=== PATIENT | female | born 1935 | race Caucasian/White ===

== ENCOUNTER 2017-03-25 11:51 | Emergency (ER) | payer MEDICARE, OTHER ==
[~2017-03-25] VITALS: Ht 160 cm; Wt 74.8 kg
[2017-03-25 13:00] VITALS: BP 181/89
[2017-03-25 13:35] LABS: Urine Bilirubin Negative (Negative); Urine Color Yellow (Yellow); Urine Glucose Normal (Normal); Urine Hyaline Cast FEW /lpf (0 - 2); Urine Ketone Negative (Negative); Urine Nitrite Negative (Negative); Urine RBC 10 /hpf (0 - 4); Urine Squamous Epithelial Cell FEW /hpf (<5); Urine Urobilinogen Normal (Negative); Urine pH 5.5 (5.0-8.0)
[2017-03-25 13:36] LABS: Urine Blood 1+ /uL (Negative)
[2017-03-25 13:39] LABS: DEFINITIVE VIEW TRANSMISSION; Hematocrit 44.5 % (36.0-46.0); Hemoglobin 14.5 g/dL (12.2-16.2); Mean Corpuscular Hemoglobin 22.1 pg (28.0-32.0); Mean Corpuscular Hgb Conc. 32.6 g/dL (32.0-36.0); Mean Corpuscular Volume 67.8 fL (80.0-100.0); Mean Platelet Volume 10.7 fL (7.4-10.4); Platelet Count (auto) 293 10^3/uL (140-450); SUSPECT VIEW TRANSMISSION; White Blood Cell 7.3 10^3/uL (4.4-10.8)
[2017-03-25 14:11] LABS: Albumin 3.7 g/dL (3.4-5.0); BUN/Creatinine Ratio 17.7; Bilirubin, Total 0.6 mg/dL (0.2-1.0); Calcium 9.2 mg/dL (8.5-10.1); Potassium 4.2 mmol/L (3.5-5.1); Total Protein 7.5 g/dL (6.4-8.2)
[2017-03-25 14:40] LABS: Red Cell Distribution Width 20.1 % (11.6-16.0)
[2017-03-25 14:41] LABS: Metamyelocytes % 0; Myelocytes % 0; Promyelocytes % 0; Reactive Lymphocytes 0
[2017-03-25 16:04] LABS: Anisocytosis Moderate; Burr Cells FEW; Giant Platelets Moderate; Hypochromia Moderate; Microcytosis Moderate; Ovalocytes FEW; Platelet Estimate Adequate
== END 2017-03-25 15:41 | disposition home or self-care (01) ==
LOC: ER 11:54
DX: M43.06 Spondylolysis, lumbar region (principal); N39.0 Urinary tract infection, site not specified; M19.90 Unspecified osteoarthritis, unspecified site; I10 Essential (primary) hypertension
CPT/HCPCS: 36415; 72100; 80053; 81001; 85007; 85027

== ENCOUNTER 2017-10-20 07:44 | Inpatient (IN) | payer MEDICARE, OTHER ==
[~2017-10-20] VITALS: Ht 160 cm; Wt 64.9 kg
[2017-10-20] MEDS ORDERED: SODIUM CHLORIDE 0.9% 1,000 ML IV ONE (08:43)
[2017-10-20] MEDS ORDERED: CLINDAMYCIN 600MG IV 50 ML IV ONE (08:45)
[2017-10-20] MEDS ORDERED: HYDROcodone-ACET 5/325MG TAB PO PRN (09:00)
[2017-10-20] MEDS ORDERED: ACETAMINOPHEN 500 MG TAB PO PRN (09:00)
[2017-10-20] MEDS ORDERED: LACTULOSE 20Gm/30ML SOLN PO PRN (09:00)
[2017-10-20] MEDS ORDERED: MORPHINE SULF INJ 2 MG/ML SYRINGE 1ML IV PRN ×2 (09:00)
[2017-10-20] MEDS ORDERED: PROMETHAZINE HCL 25 MG/ML 1ML IV PRN (09:00)
[2017-10-20] MEDS ORDERED: LORazepam 0.5 MG TAB PO PRN (09:00)
[2017-10-20] MEDS ORDERED: TEMAZEPAM 15 MG CAP PO PRN (09:00)
[2017-10-20] MEDS ORDERED: NITROGLYCERIN 0.4 MG SL TAB SL PRN (09:00)
[2017-10-20] MEDS: SODIUM CHLORIDE 0.9% 1,000 ML IV SCH ×2 (09:30→18:58)
[2017-10-20 09:35] LABS: Mean Platelet Volume 8.8 fL (6.9-10.8); White Blood Cell 6.1 10^3/uL (4.4-10.8)
[2017-10-20 09:36] LABS: Hematocrit 42.2 % (36.0-46.0); Mean Corpuscular Hemoglobin 24.7 pg (28.0-32.0); Mean Corpuscular Hgb Conc. 33.2 g/dL (32.0-36.0); Mean Corpuscular Volume 74.5 fL (80.0-100.0); Platelet Count (auto) 207 10^3/uL (140-450)
[2017-10-20 09:39] LABS: Red Cell Distribution Width 20.1 % (11.8-14.3)
[2017-10-20 09:40] LABS: Metamyelocytes % 0; Myelocytes % 0; Promyelocytes % 0; Reactive Lymphocytes 0
[2017-10-20] MEDS: cefTRIAXone 1GM/10ml IVPUSH 10 ML IV SCH (09:40)
[2017-10-20 09:48] LABS: BUN/Creatinine Ratio 14.6; Calcium 8.4 mg/dL (8.5-10.1); Potassium 3.6 mmol/L (3.5-5.1)
[2017-10-20 10:15] LABS: Anisocytosis Slight; Burr Cells FEW; Hypochromia Slight; Platelet Estimate Adequate
[2017-10-20 10:16] LABS: Microcytosis Slight; Ovalocytes FEW
[2017-10-20 10:28] LABS: Urine Bilirubin Negative (Negative); Urine Blood Negative /uL (Negative); Urine Color Yellow (Yellow); Urine Glucose Normal (Normal); Urine Ketone Negative (Negative); Urine Mucus FEW (None Seen); Urine Nitrite POSITIVE (Negative); Urine RBC 3 /hpf (0 - 4); Urine Squamous Epithelial Cell FEW /hpf (<5); Urine Urobilinogen Normal (Negative)
[2017-10-20] MEDS: HYDROXYUREA 500 MG CAP PO ONE ×2 (10:30→11:31)
[2017-10-20] MEDS: ENOXAPARIN SOD 40 MG/0.4 ML SYRINGE SC SCH (11:31)
[2017-10-20 11:57] LABS: Uric Acid 6.4 mg/dL (2.6-6.0)
[2017-10-20] MEDS: CLINDAMYCIN 600MG IV 50 ML IV SCH ×2 (14:00→21:37)
[2017-10-20] MEDS ORDERED: ASPI81CH43 PO (14:55)
[2017-10-20] MEDS ORDERED: CLON0.1T PO (14:55)
[2017-10-20] MEDS ORDERED: LEVO112T4 PO (14:55)
[2017-10-20] MEDS ORDERED: BENA20TA14 PO (14:55)
[2017-10-20 17:00] VITALS: BP 194/80
[2017-10-20] MEDS ORDERED: HYD500C PO (20:24)
[2017-10-20 22:00] VITALS: BP 172/82
[2017-10-20] MEDS: cloNIDine HCL 0.1 MG TAB PO PRN (22:36)
[2017-10-21] MEDS: SODIUM CHLORIDE 0.9% 1,000 ML IV SCH (04:50)
[2017-10-21] MEDS: CLINDAMYCIN 600MG IV 50 ML IV SCH ×3 (05:44→22:06)
[2017-10-21] MEDS: cloNIDine HCL 0.1 MG TAB PO PRN (05:45)
[2017-10-21 06:00] VITALS: BP 196/79
[2017-10-21 09:00] VITALS: BP 171/67
[2017-10-21] MEDS: cefTRIAXone 1GM/10ml IVPUSH 10 ML IV SCH (09:46)
[2017-10-21] MEDS: ENOXAPARIN SOD 40 MG/0.4 ML SYRINGE SC SCH (09:46)
[2017-10-21] MEDS: HYDROXYUREA 500 MG CAP PO SCH (09:46)
[2017-10-21] MEDS ORDERED: BENA40TA7 PO (10:26)
[2017-10-21] MEDS ORDERED: cloNIDine HCL 0.1 MG TAB PO ONE (11:45)
[2017-10-21] MEDS ORDERED: SODIUM CHLORIDE 0.9% 1,000 ML IV SCH (11:45)
[2017-10-21] MEDS: LEVOTHYROXINE SODIUM 112 MCG TAB PO SCH (12:14)
[2017-10-21] MEDS: BENAZEPRIL HCL 10 MG TAB PO SCH ×2 (12:14→22:08)
[2017-10-21 13:00] VITALS: BP 170/74
[2017-10-21] MEDS ORDERED: BENAZEPRIL HCL 10 MG TAB PO ONE (16:30)
[2017-10-21 17:00] VITALS: BP 189/77
[2017-10-21 17:30] VITALS: BP 165/71
[2017-10-21] MEDS ORDERED: cloNIDine HCL 0.1 MG TAB PO PRN (18:15)
[2017-10-21 22:00] VITALS: BP 150/69
[2017-10-21] MEDS: cloNIDine HCL 0.1 MG TAB PO SCH (22:07)
[2017-10-22 04:06] LABS: Rheumatoid Arthritis Factor <10.0 IU/mL (0.0-13.9)
[2017-10-22 05:00] VITALS: BP 170/74
[2017-10-22 05:30] LABS: Red Cell Distribution Width 19.8 % (11.8-14.3)
[2017-10-22 05:31] LABS: Hematocrit 43.9 % (36.0-46.0); Hemoglobin 14.5 g/dL (12.2-16.2); Mean Corpuscular Hemoglobin 24.7 pg (28.0-32.0); Mean Corpuscular Volume 74.8 fL (80.0-100.0); Mean Platelet Volume 9.4 fL (6.9-10.8); Platelet Count (auto) 211 10^3/uL (140-450)
[2017-10-22 05:38] LABS: Metamyelocytes % 0; Myelocytes % 0; Promyelocytes % 0; Reactive Lymphocytes 0
[2017-10-22] MEDS: CLINDAMYCIN 600MG IV 50 ML IV SCH ×2 (05:50→14:00)
[2017-10-22 05:53] LABS: BUN/Creatinine Ratio 19.2; Calcium 8.8 mg/dL (8.5-10.1); Magnesium 2.1 mg/dL (1.6-2.6); Potassium 3.8 mmol/L (3.5-5.1)
[2017-10-22] MEDS: LEVOTHYROXINE SODIUM 112 MCG TAB PO SCH (06:44)
[2017-10-22] MEDS ORDERED: hydrALAZINE HCL 20 MG/ML VL IV ONE (07:00)
[2017-10-22 07:54] VITALS: BP 173/76
[2017-10-22] MEDS: cefTRIAXone 1GM/10ml IVPUSH 10 ML IV SCH (09:02)
[2017-10-22] MEDS: HYDROXYUREA 500 MG CAP PO SCH (09:31)
[2017-10-22] MEDS: BENAZEPRIL HCL 10 MG TAB PO SCH (09:32)
[2017-10-22] MEDS: ENOXAPARIN SOD 40 MG/0.4 ML SYRINGE SC SCH (09:33)
[2017-10-22] MEDS: cloNIDine HCL 0.1 MG TAB PO SCH (09:33)
[2017-10-22] MEDS ORDERED: NITR-39 PO (10:53)
[2017-10-22] MEDS ORDERED: CLIN1CAP4 PO (10:53)
[2017-10-22] MEDS ORDERED: SACC250C PO (10:54)
[2017-10-22 12:04] VITALS: BP 119/58
[2017-10-22 12:07] VITALS: BP 119/58
[2017-10-22 14:02] LABS: Platelet Estimate Adequate
[2017-10-22 14:03] LABS: Microcytosis Moderate
[2017-10-22 14:04] LABS: Anisocytosis Slight; Burr Cells FEW; Ovalocytes FEW
[2017-10-22 14:07] LABS: Hypochromia Slight
[2017-10-22 19:06] LABS: Sjogren's Anti-SS-A Antibody <0.2 AI (0.0-0.9)
== END 2017-10-22 15:50 | disposition home health service (06) | DRG 603 ==
LOC: ER 07:44 → TELE 07:45 → TELE-EAST 15:09
PROVIDERS: ADMIT Internal Medicine; ATTEND Internal Medicine
DX: L03.116 Cellulitis of left lower limb (principal); D45 Polycythemia vera; F03.90 Unspecified dementia, unspecified severity, without behavioral disturbance, psychotic disturbance, mood disturbance, and anxiety; N39.0 Urinary tract infection, site not specified; E78.5 Hyperlipidemia, unspecified; E03.9 Hypothyroidism, unspecified; X58.XXXA Exposure to other specified factors, initial encounter; I12.9 Hypertensive chronic kidney disease with stage 1 through stage 4 chronic kidney disease, or unspecified chronic kidney disease; M19.90 Unspecified osteoarthritis, unspecified site; N18.9 Chronic kidney disease, unspecified; R63.4 Abnormal weight loss; Z68.25 Body mass index [BMI] 25.0-25.9, adult; Z88.2 Allergy status to sulfonamides; Z90.49 Acquired absence of other specified parts of digestive tract; Y93.89 Activity, other specified; Y92.89 Other specified places as the place of occurrence of the external cause; Y99.8 Other external cause status; S92.325G Nondisplaced fracture of second metatarsal bone, left foot, subsequent encounter for fracture with delayed healing; S92.335G Nondisplaced fracture of third metatarsal bone, left foot, subsequent encounter for fracture with delayed healing; S92.345G Nondisplaced fracture of fourth metatarsal bone, left foot, subsequent encounter for fracture with delayed healing
CPT/HCPCS: 36415; 73630; 73718; 80048; 80061; 81001; 83516; 83735; 84443; 84550; 85007; 85027; 85652; 86141; 86225; 86235; 86431; 87040; 87086; 93005; 93971; 96365; 96368; 96372; J3490

== ENCOUNTER 2017-10-26 15:41 | Emergency (ER) | payer MEDICARE, OTHER ==
[~2017-10-26] VITALS: Ht 160 cm; Wt 63.5 kg
[~2017-10-26 15:41] MED LIST: ASPI81CH43 PO; BENA40TA7 PO; CLIN1CAP4 PO; CLON0.1T PO; HYD500C PO; LEVO112T4 PO; NITR-39 PO; SACC250C PO
[2017-10-26 16:36] VITALS: BP 137/73
[2017-10-26 17:59] LABS: Mean Platelet Volume 8.9 fL (6.9-10.8)
[2017-10-26 18:00] LABS: Hematocrit 47.4 % (36.0-46.0); Hemoglobin 15.8 g/dL (12.2-16.2); Mean Corpuscular Hemoglobin 25.1 pg (28.0-32.0); Mean Corpuscular Hgb Conc. 33.3 g/dL (32.0-36.0); Mean Corpuscular Volume 75.2 fL (80.0-100.0); Platelet Count (auto) 226 10^3/uL (140-450)
[2017-10-26 18:12] LABS: Red Cell Distribution Width 20.3 % (11.8-14.3)
[2017-10-26 18:13] LABS: INR 1.05 (0.9-1.15); Metamyelocytes % 0; Myelocytes % 0; Partial Thromboplastin Time 32.6 sec (22.64-33.71); Promyelocytes % 0; Prothrombin Time 11.4 sec (9.37-12.3); Reactive Lymphocytes 0
[2017-10-26 18:19] LABS: Albumin 3.8 g/dL (3.4-5.0); Calcium 8.8 mg/dL (8.5-10.1); Potassium 3.9 mmol/L (3.5-5.1)
[2017-10-26 18:25] LABS: Bilirubin, Total 0.9 mg/dL (0.2-1.0); Total Protein 7.7 g/dL (6.4-8.2)
[2017-10-26 19:36] LABS: Platelet Estimate Adequate
[2017-10-26 19:38] LABS: Anisocytosis Slight; Burr Cells FEW; Microcytosis Slight; Ovalocytes FEW
[2017-10-26 19:39] LABS: Schistocytes FEW
== END 2017-10-26 23:37 | disposition left against medical advice (07) ==
LOC: ER 15:51
DX: M79.671 Pain in right foot (principal); Z53.21 Procedure and treatment not carried out due to patient leaving prior to being seen by health care provider
CPT/HCPCS: 36415; 80053; 84484; 85007; 85027; 85610; 85730

== ENCOUNTER → 2019-01-22 | Outpatient (CLI) | payer MEDICARE, OTHER ==
[2019-01-22 16:34] LABS: Urine Bacteria NONE SEEN /hpf (None Seen); Urine Blood Negative /uL (Negative); Urine Specific Gravity 1.016 (1.001-1.035); Urine WBC 2 /hpf (0 - 5)
== END | disposition home or self-care (01) ==
LOC: LAB 16:05
PROVIDERS: ATTEND Nurse Practitioner
DX: E78.5 Hyperlipidemia, unspecified (principal)
CPT/HCPCS: 81001